=== PATIENT | female | born 1970 | race Caucasian/White ===

== ENCOUNTER 2023-02-20 06:45 | Emergency (ER) | payer BC, OTHER ==
[~2023-02-20] VITALS: Ht 167.6 cm; Wt 86.5 kg
[2023-02-20 06:51] VITALS: O2SAT 100
[2023-02-20] MEDS ORDERED: KETAMINE HCL 50 MG/ML 10ML IV ONE (08:15)
[2023-02-20] MEDS ORDERED: PROPOFOL 200MG/20ML VIAL IV PRN (08:15)
[2023-02-20] MEDS ORDERED: ONDANSETRON HCL 4MG/2ML INJ IV ONE (08:15)
[2023-02-20] MEDS ORDERED: MORPHINE SULFATE 4 MG/ML CPJ (NOT FOR IM USE) IV ONE (08:30)
[2023-02-20] MEDS ORDERED: IBUP-2028 PO (12:00)
[2023-02-20 12:46] VITALS: BP 141/79; PULSE 75; RESP 14; TEMP 98.8
== END 2023-02-20 12:47 | disposition home or self-care (01) ==
LOC: ER 06:45
DX: S82.851A Displaced trimalleolar fracture of right lower leg, initial encounter for closed fracture (principal); J45.909 Unspecified asthma, uncomplicated; X58.XXXA Exposure to other specified factors, initial encounter; Y93.89 Activity, other specified; Y92.89 Other specified places as the place of occurrence of the external cause; Y99.8 Other external cause status
CPT/HCPCS: 27818; 73590; 73600; 99152; 99285; 93005; 96374; J3490; J2405; J2704; J2270